=== PATIENT | male | born 1950 | race Caucasian/White ===

== ENCOUNTER → 2019-04-26 | Outpatient (CLI) | payer MEDICARE | END | disposition home or self-care (01) | LOC: RAH 11:59 | PROVIDERS: ATTEND Internal Medicine | DX: R06.02 Shortness of breath (principal) | CPT/HCPCS: 71046 ==

== ENCOUNTER → 2019-08-12 | Outpatient (CLI) | payer MEDICARE | END | disposition home or self-care (01) | LOC: RAH 13:15 | PROVIDERS: ATTEND Internal Medicine | DX: R59.0 Localized enlarged lymph nodes (principal) | CPT/HCPCS: 76536 ==

== ENCOUNTER → 2019-10-04 | Outpatient (CLI) | payer MEDICARE ==
--- NOTE | 2019-10-04 10:30 | NUR ---
MBSS COMPLETED. SHALLOW TRANSIENT PENETRATION WITH THIN LIQUIDS VIA LARGE CUP SIP. RECOMMEND REGULAR TEXTURE, THIN LIQUIDS AND PILLS WHOLE WITH COMPENSATORY STRATEGIES IN PLACE. Pt EDUCATED ON RISKS AND CONSEQUENCES OF ASPIRATION. RESULTS AND RECOMMENDATIONS REVIEWED WITH Pt. METALLOGRAPHER PROVIDED Pt WITH RECOMMENDATIONS VIA WRITTEN MODALITY. ALL QUESTIONS ANSWERED AT THIS TIME. IF Pt PRESENTS WITH WORSENING SYMPTOMS, PLEASE CONSIDER A FOLLOW UP MBSS OR RE-EVALUATION. Addendum: 10/04/19 at 1308 by SHAKILA NICKERSON [facility] Amended: Links added.
== END | disposition home or self-care (01) ==
LOC: RAH 09:56
PROVIDERS: ATTEND Internal Medicine Gastroenterology
DX: R13.13 Dysphagia, pharyngeal phase (principal); K21.9 Gastro-esophageal reflux disease without esophagitis
CPT/HCPCS: 74230; 92611

== ENCOUNTER → 2022-11-11 | Outpatient (CLI) | payer OTHER | END | disposition home or self-care (01) | LOC: RAH 10:49 | PROVIDERS: ATTEND Internal Medicine | DX: J45.909 Unspecified asthma, uncomplicated (principal) | CPT/HCPCS: 71046 ==